=== PATIENT | female | born 1970 | race African-American/Black ===

== ENCOUNTER 2021-06-22 18:51 | Emergency (ER) | payer BC ==
[~2021-06-22] VITALS: Ht 177.8 cm; Wt 149.9 kg
[2021-06-22 20:01] LABS: BASOPHILS % (AUTO) 1 % (0-1); EOSINOPHILS % (AUTO) 1 % (1-7); LYMPHOCYTES % (AUTO) 26 % (22-44); MEAN CORPUSCULAR HEMOGLOBIN 26.5 pg (27.0-34.8); MEAN CORPUSCULAR HGB CONC 32.5 g/dL (32.4-35.8); MEAN PLATELET VOLUME 7.6 fL (7.4-10.4); MONOCYTES % (AUTO) 6 % (2-9); NEUTROPHILS % (AUTO) 66 % (42-75); PLATELET COUNT 412 x10^3/uL (130-400); RED BLOOD COUNT 4.75 x10^6/uL (3.82-5.3); RED CELL DISTRIBUTION WIDTH 15.5 % (9.6-15.2)
[2021-06-22 20:08] LABS: ALANINE AMINOTRANSFERASE 20 U/L (12-78); ALBUMIN 3.3 g/dL (3.4-5.0); ANION GAP 6 mmol/L (5-15); CALCIUM 9.8 mg/dL (8.5-10.1); CHLORIDE 106 mmol/L (98-107); CREATININE 1.01 mg/dL (0.55-1.02)
[2021-06-22 20:12] LABS: ALKALINE PHOSPHATASE 96 U/L (45-117); BILIRUBIN,TOTAL 0.3 mg/dL (0.2-1.0); TOTAL PROTEIN 9.3 g/dL (6.4-8.2); TROPONIN I < 0.015 ng/mL (0.000-0.045)
--- NOTE | 2021-06-22 20:39 | NUR ---
TO ROOM FROM LOBBY. NAD.
[2021-06-22] MEDS ORDERED: ONDANSETRON ODT 4 MG PO ONE (21:00)
[2021-06-22 21:23] VITALS: BP 135/89
[2021-06-22] MEDS ORDERED: ONDANSETRON ODT 4 MG ONE (21:53)
--- NOTE | 2021-06-22 22:59 | NUR ---
F/U AND D/C INSTRUCTIONS GIVEN TO PT AND SHE V/U WITH PRESCRIPTIONS. PT AMBULATED TO DISCHARGE DESK, NO ACUTE DISTRESS.
== END 2021-06-22 23:01 | disposition home or self-care (01) ==
LOC: ED 21:30
DX: R11.2 Nausea with vomiting, unspecified (principal); R10.13 Epigastric pain; R10.11 Right upper quadrant pain; R42 Dizziness and giddiness
CPT/HCPCS: 36415; 74022; 76700; 80053; 83690; 84484; 84703; 85025; 85379; 93005; 99285; Q0162